=== PATIENT | female | born 1960 | race Hispanic/Latino ===

== ENCOUNTER 2018-03-18 05:54 | Day surgery (SDC) | payer OTHER ==
[2018-03-12 08:48] VITALS: BMI 36.6
[2018-03-18] MEDS ORDERED: Propofol 10 mg/ml 1,000 MG/100 ML VIAL ONE (07:42)
[2018-03-18] MEDS: Lidocaine 2% MPF (5 ml) Inj ONE ×2 (07:45→08:30)
[2018-03-18] MEDS ORDERED: Lactated Ringer's 1,000 ML IV ONE ×3 (07:45→09:02)
[2018-03-18] MEDS ORDERED: Propofol 10 mg/ml Inj (20 ML) ONE (07:48)
[2018-03-18] MEDS ORDERED: Midazolam 2 MG/2 ML VIAL ONE (07:48)
[2018-03-18] MEDS ORDERED: ceFAZolin IV 2 gm in Dextrose 2 GM/50 ML BAG IVPB ONE (07:56)
[2018-03-18] MEDS ORDERED: Lidocaine 2% MPF (5 ml) Inj ONE (08:17)
[2018-03-18] MEDS ORDERED: Oxycodone/Acetaminophen 5/325 mg Tab PO PRN ×2 (09:05)
--- NOTE | 2018-03-18 09:05 | PCM.SURG1 ---
Surgeon's Initial Post Op Note - Surgeon's Notes Surgeon: Dr. Burns Putty And Patch Worker: Fernando Pereira PGY2, Susana Middleton PGY1 Type of Anesthesia: IV Sedation, Local (20cc 2% lidocaine plain & 0.5% marcaine plain) Anesthesia Administered By: Dr. Rossi Pre-Operative Diagnosis: Right foot 5th metatarsal styloid process avulsion fracture non-union Operative Findings: See operative report. Materials: Arthrex miniSutureTak, 3- 0 vicryl, 4-0 prolene. Injectables: 10cc 2% lidocaine plain Post-Operative Diagnosis: Right foot 5th metatarsal styloid process avulsion fracture non-union Operation Performed: 1) Right foot 5th metatarsal excision of fracture fragment. 2) Repair of peroneus brevis tendon, right foot Specimen/Specimens Removed: Right foot 5th metatarsal styloid process Estimated Blood Loss: EBL {In ML}: 1 Blood Products Given: N/A Drains Used: No Drains Post-Op Condition: Good Date of Surgery/Procedure: 03/18/18 Time of Surgery/Procedure: 09:04
[2018-03-18] MEDS ORDERED: HYDROmorphone 0.5 mg/0.5 ml ISec IVP PRN (09:06)
[2018-03-18 11:26] VITALS: BP 104/52; PULSE 87; RESP 16; TEMP 97.7; O2SAT 96
--- NOTE | 2018-03-21 03:18 | OP ---
PROCEDURE DATE: 03/18/2018 SURGEON: Dr. Kalyan Burns DPM TATTOO DESIGNER: Lola Pereira DPM, PGY-2; Corin Middleton, PGY-1 ANESTHESIOLOGIST: Dr. Rossi. TYPE OF ANESTHESIA: IV sedation with local, 20 mL of 2% lidocaine plain and 0.5% Marcaine plain. PREOPERATIVE DIAGNOSIS: Right foot fifth metatarsal styloid process avulsion fracture nonunion. POSTOPERATIVE DIAGNOSIS: Right foot fifth metatarsal styloid process avulsion fracture nonunion. NAME OF PROCEDURE: 1. Right foot fifth metatarsal excision of fracture fragment. 2. Repair of peroneus brevis tendon right foot. INDICATIONS: The patient is a 58-year-old female with the above diagnosis. The patient has exhausted all conservative treatment at this time and now requests surgical intervention. The patient signed the consent after careful explanation of risks, benefits, complications, and alternatives of the procedure and wishes to proceed. No guarantees were given nor implied. PREPARATION: The patient was brought into the operating room and placed on the operating room table in a supine position. Time-out was performed for identification of the correct patient and procedure. A pneumatic ankle tourniquet was placed on the right lower extremity in the supramalleolar position. After the induction of IV sedation, a total of approximately 20 mL of 2% lidocaine plain and 0.5% Marcaine plain was administered in a reverse Uriarte block type fashion. Once local anesthesia was achieved, the right foot was then prepped and draped in the normal sterile manner and the procedure began. PROCEDURE #1 Right foot fifth metatarsal excision of fracture fragment. Attention was directed to the dorsal lateral aspect of the right forefoot. With the use of a #15 blade an approximately 4 cm in length incision was created along the dorsal lateral fifth metatarsal. The incision was carried down through subcutaneous tissue to the level of bone, being careful to retract and ligate all neurovascular structures as deemed necessary. The periosteal structures were then dissected free from the fifth metatarsal reflected medially and lateral thus exposing the styloid process fracture fragment. Next, utilizing a #15 blade, the peroneus brevis insertion point was reflected medially and laterally thus giving adequate visualization of the fracture fragment. Utilizing an osteotome and mallet, the fracture fragment was resected and passed from the operative field. A rongeur was then used to smooth down all bony prominences and a Bovie was used to cauterize any bleeders if necessary. PROCEDURE #2 Repair of peroneus brevis tendon right foot. Attention was directed to the fifth metatarsal styloid process and was noted to have reflected peroneus brevis tendon. The lateral aspect of the tendon was reflected off the fracture fragment. Next, utilizing an Arthrex Mini SutureTak, the Mini SutureTak was inserted into the remaining base of the fifth metatarsal. The peroneus brevis tendon was then retubularized using the FiberWire from the Mini SutureTak. The tendon was then placed back in an anatomic position and inserted within the base of the fifth metatarsal. The right foot was then placed with full range of motion and the correction was noted to be excellent. The wound was then copiously irrigated with sterile normal saline. The subcutaneous tissue was reapproximated using 3-0 Vicryl, and the skin was reapproximated using 4-0 Prolene. Postoperatively, approximately 10 mL of 2% lidocaine was administered in the proximal V-type fashion. Postoperative bandages included Xeroform, 4 x 4, gauze, Kerlix. POSTOPERATIVE CONDITION: The patient tolerated the procedure and anesthesia well and was escorted to the recovery room with vital signs stable and neurovascular status intact to the right lower extremity. The patient will follow up with Dr. Burns in office on an outpatient basis. Lola Pereira DPM PHUONG
== END 2018-03-18 12:45 | disposition home or self-care (01) ==
LOC: C.SDS 05:54
PROVIDERS: ATTEND Podiatrist Foot & Ankle Surgery
DX: S92.351S Displaced fracture of fifth metatarsal bone, right foot, sequela (principal); S86.311D Strain of muscle(s) and tendon(s) of peroneal muscle group at lower leg level, right leg, subsequent encounter
CPT/HCPCS: 28200; 28322; 88304; 88311; 97116; 97161; J0690; J2001; J2250; J2704; J2930; J3010; J7120